=== PATIENT | male | born 1985 | race Two or more races ===

== ENCOUNTER 2022-01-11 13:42 | Emergency (ER) | payer OTHER ==
[~2022-01-11] VITALS: Ht 175.3 cm; Wt 77.1 kg
[2022-01-11] MEDS ORDERED: KEPPRA500 MG PO (13:49)
== END 2022-01-11 20:31 | disposition home or self-care (01) ==
LOC: ER 13:42
DX: R56.9 Unspecified convulsions (principal)

== ENCOUNTER → 2024-09-06 | Emergency (ER) | payer OTHER ==
[~2024-09-06] VITALS: Ht 162.6 cm; Wt 61.2 kg
[~2024-09-06] MED LIST: KEPPRA500 MG PO
[2024-09-06 23:09] LABS: HEMATOCRIT 41.2 % (39.0-48.0); HEMOGLOBIN 14.2 g/dL (13-16.00); MEAN CELL VOLUME 95.8 fL (80.0-100.00); MEAN CORPUSCULAR HEMOGLOBIN 33.1 pg (27.00-32.0); MEAN CORPUSCULAR HGB CONC 34.6 g/dl (32.0-36.0); PLATELET COUNT 258 K/uL (150-450); RED CELL DISTRIBUTION WIDTH 12.9 % (11.5-14.5)
[2024-09-06 23:13] LABS: PH,URINE 5.5 (5.0-8.0); URINE APPEARANCE Clear; URINE BILIRRUBIN Negative (NEGATIVE); URINE BLOOD Negative; URINE COLOR Yellow; URINE GLUCOSE Negative (NEGATIVE); URINE KETONE Negative (NEGATIVE); URINE LEUKOCYTE Negative; URINE NITRATE Negative; URINE PROTEIN Negative (NEGATIVE); URINE UROBILINOGEN 0.2 E.U./dl
[2024-09-06 23:17] LABS: URINE BACTERIA 7.3 uL (0.0-1933); URINE EPITHELIAL CELLS 1.4 uL (0.0-38.8)
[2024-09-06 23:20] LABS: URINE CAST 0.14 uL (0.0-1.40); URINE RBC 0.5 uL (0.0-20.8)
[2024-09-06 23:24] LABS: CALCIUM 8.8 mg/dL (8.5-10.1); CREATININE SERUM 1.18 mg/dL (0.70-1.30); GFR 68.37; POTASSIUM 3.54 mEq/L (3.5-5.1)
== END | disposition home or self-care (01) ==
LOC: ER 20:52
PROVIDERS: Emergency Medicine
DX: R42 Dizziness and giddiness (principal); G40.802 Other epilepsy, not intractable, without status epilepticus

== ENCOUNTER 2024-11-24 21:20 | Emergency (ER) | payer OTHER ==
[~2024-11-24] VITALS: Ht 162.6 cm; Wt 61.2 kg
== END 2024-11-25 00:44 | disposition home or self-care (01) ==
LOC: ER 21:20
DX: R53.1 Weakness (principal); G40.909 Epilepsy, unspecified, not intractable, without status epilepticus